=== PATIENT | male | born 1935 | race Caucasian/White ===

== ENCOUNTER 2022-11-03 19:35 | Emergency (ER) | payer MEDICARE ==
[~2022-11-03 19:35] MED LIST: Iopamidol 370 76% 100 ML VIAL ONE
[2022-11-03 20:06] LABS: #Basophils 0.1 10x3/uL (0.0-0.2); #Eosinphils 0.4 10x3/uL (0.0-0.5); #Neutrophils 4.8 10x3/uL (1.5-8.4); %Basophils 0.9 % (0.0-2.0); %Eosinophils 4.6 % (0.0-6.0); %Lymphocytes 20.7 % (18.0-47.0); %Monocytes 12.1 % (0.0-10.0); %Neutrophils 61.2 % (40.0-75.0); Hemoglobin 13.2 g/dL (13.5-17.5); Mean Corpuscular HGB CONC 33.1 g/dL (32.0-36.0); Mean Corpuscular Hemoglobin 30.7 pg (27.0-33.0); Mean Corpuscular Volume 92.8 fl (81.2-95.1); Mean Platelet Volume 9.4 fl (7.4-10.4); Platelet Count 243 10x3/uL (150-450); White Blood Cell (WBC) Count 7.8 10x3/uL (3.5-10.5)
[2022-11-03 20:16] LABS: ALT (SGPT) 22 U/L (8-55); AST (SGOT) 31 U/L (5-34); Alkaline Phosphatase 91 U/L (40-110); Anion Gap 19 mmol/L (10-20); BUN (Urea Nitrogen) 26 mg/dL (8.4-25.7); Bilirubin, Total 0.5 mg/dL (0.2-1.2); Calc. Creatinine Clearance 0 mL/min (70-130); Calcium 8.7 mg/dL (7.8-10.44); Carbon Dioxide 18 mmol/L (23-31); Chloride 107 mmol/L (98-107); Estimated GFR 35; Globulin 3.3 g/dL (2.4-3.5); Glucose 130 mg/dL (83-110); INR-International Normal Ratio 1.2; Protein, Total 7.3 g/dL (5.8-8.1); Prothrombin Time 13.3 sec (9.5-12.1); Sodium 140 mmol/L (136-145)
[2022-11-03 22:36] LABS: Amphetamine Not Detected (NotDetected); Barbiturates Screen Not Detected (NotDetected); Benzodiazepine Screen Not Detected (NotDetected); Cocaine Metabolite Screen Not Detected (NotDetected); Methadone Not Detected (NotDetected); Methamphetamine Not Detected (NotDetected); Opiate Screen Not Detected (NotDetected); Oxycodone Screen Not Detected (NotDetected); Phencyclidine (PCP) Not Detected (NotDetected); THC/Cannabinoid Screen Not Detected (NotDetected); Tricyclic Screen Not Detected (NotDetected)
== END 2022-11-03 23:08 | disposition home or self-care (01) ==
LOC: CSHERS 19:35
DX: R55 Syncope and collapse (principal)
CPT/HCPCS: 36416; 70450; 70496; 70498; 71045; 80053; 80306; 80307; 84484; 85025; 85730; 93005; 94760; 96360; Q9967